=== PATIENT | female | born 1965 | race Caucasian/White ===

== ENCOUNTER → 2018-11-21 10:16 | Outpatient (CLI) | payer OTHER, SELFPAY ==
--- NOTE | 2018-11-21 10:00 | DI.MG.S_ITS ---
Patient Name: ARUN CLAY date: 1965 Sex: F Attending Physician: Malick Indications: Date: 11/21/2018 10:30 At the request of: JOSE G BURGOS Procedure: MM screening mammo BI BILATERAL DIGITAL SCREENING MAMMOGRAM 3D/2D WITH CAD: 11/21/2018 CLINICAL: Routine screening. Comparison is made to exams dated: 10/16/2015 mammogram, 03/19/2013 mammogram - [facility], and 07/12/2011 mammogram - [facility]. The tissue of both breasts is predominantly fatty. Current study was also evaluated with a Computer Aided Detection (CAD) system. There are benign calcifications in both breasts. No significant masses, calcifications, or other findings are seen in either breast. There has been no significant interval change. IMPRESSION: There is no mammographic evidence of malignancy. A 1 year screening mammogram is recommended. This exam was interpreted at Station ID: [id number]. NOTE: For mammograms, a report in lay terms will be sent to the patient. Approximately 15% of breast malignancies will not be visualized mammographically. In the management of a palpable breast mass, a negative mammogram must not discourage biopsy of a clinically suspicious lesion. Electronically Signed By: James pina/west:11/21/2018 14:01:33 letter sent: Normal Exam ACR BI-RADS Category 2: Benign Finding(s) 3342F
== END ==
PROVIDERS: PCP Nurse Practitioner Family; Visit Provider Nurse Practitioner Family
DX: Z12.31 Encounter for screening mammogram for malignant neoplasm of breast (principal)
CPT/HCPCS: 77063; 77067

== ENCOUNTER → 2018-11-24 08:45 | Outpatient (CLI) | payer OTHER, SELFPAY ==
--- NOTE | 2018-11-24 08:59 | DI.CT.S_ITS ---
PROCEDURE: CT SINUS SCREEN WO CON INDICATIONS: SINUSITIS TECHNIQUE: Noncontrast 3.0 mm axial images acquired from the frontal sinuses to the mid-sella, with coronal and sagittal reformats. For radiation dose reduction, the following was used: automated exposure control, adjustment of mA and/or kV according to patient size. COMPARISON: None. FINDINGS: Image quality: Excellent. Sinuses: There is minimal bilateral maxillary and frontal sinus mucosal thickening. present. Ostiomeatal Complexes: Ostiomeatal complexes are patent. There is slight narrowing on the left secondary to turbinate curvature. Miscellaneous: Visualized intra-orbital contents are normal. There is a minimal appearance of bilateral paradoxical middle turbinate. There is aeration of the vertical jonathan of the middle turbinates bilaterally. Mild rightward nasal septal deviation with prominent nasal osseous spur is noted along the inferior aspect. IMPRESSION: 1. Minimal maxillary and frontal sinus mucosal thickening patent osteomeatal complexes. Dictated by: Hortensia Vick M.D. on 11/24/2018 at 10:29 Approved by: Hortensia Vick M.D. on 11/24/2018 at 10:54
== END ==
PROVIDERS: PCP Nurse Practitioner Family; Visit Provider Otolaryngology
DX: J32.8 Other chronic sinusitis (principal); J34.2 Deviated nasal septum
CPT/HCPCS: 70486

== ENCOUNTER → 2019-07-14 11:39 | Outpatient (CLI) | payer OTHER, SELFPAY ==
[2019-07-14 12:18] LABS: Add Manual Diff / Slide Review NO; Basophils Absolute Auto 100 /uL (0-100); Basophils Percent Auto 0.7 % (0-2); Eosinophils Absolute Auto 100 /uL (0-450); Eosinophils Percent Auto 1.6 % (2-4); Hematocrit 40.6 % (36-46); Hemoglobin 13.8 g/dL (12.0-16.0); Lymphocytes Absolute Auto 2600 /uL (1100-4500); Mean Corpuscular Hemoglobin 31.6 PG (26-34); Mean Corpuscular Volume 92.9 fL (80-100); Monocytes Absolute Auto 600 /uL (0-900); Monocytes Percent Auto 7.2 % (3-14); Neutrophils Absolute Auto 5000 /uL (1500-7000); Neutrophils Percent Auto 59.5 % (50-75); Platelet Count 296 X10^3/uL (150-400); Red Blood Cell Count 4.37 X10^6/uL (4.0-5.2); White Blood Cell Count 8.5 X10^3/uL (4.5-11.0)
[2019-07-14 12:22] LABS: Monotest Negative (Negative)
[2019-07-14 12:50] LABS: HEMOLYSIS < 15 (0-50); Iron 106 ug/dL (37-170)
[2019-07-14 12:54] LABS: Alanine Aminotransferase 32 IU/L (9-52); Albumin 4.2 g/dL (3.5-5.0); Albumin Globulin Ratio 1.4 (1.0-2.8); Alkaline Phosphatase 77 U/L (38-126); Aspartate Aminotransferase 30 IU/L (14-36); Bilirubin Total 0.6 mg/dL (0.2-1.3); Blood Urea Nitrogen 16 mg/dL (7-17); Calcium 9.6 mg/dL (8.4-10.2); Carbon Dioxide 23 mmol/L (22-32); Chloride 105 mmol/L (98-107); Estimated Glomerular Filt Rate > 60.0 mL/min (>60); Globulin 2.9 g/dL (1.7-4.1); Glucose 110 mg/dL (70-100); HEMOLYSIS < 15 (0-50); Potassium 4.4 mmol/L (3.4-5.1); Sodium 138 mmol/L (137-145); Total Protein 7.1 g/dL (6.3-8.2)
[2019-07-14 13:04] LABS: Percent Iron Saturation 31 % (15-50); Total Iron Binding Capacity 343 ug/dL (265-497); Transferrin 289 mg/dL (206-381)
[2019-07-14 13:21] LABS: Thyroid Stimulating Hormone 1.85 uIU/mL (0.47-4.68)
== END ==
PROVIDERS: PCP Nurse Practitioner Family; Visit Provider Nurse Practitioner Family
DX: R53.83 Other fatigue (principal); R07.0 Pain in throat; R51 Headache
CPT/HCPCS: 36415; 80053; 83540; 83550; 84443; 85025; 86318

== ENCOUNTER → 2021-02-09 08:16 | Outpatient (CLI) | payer OTHER, SELFPAY ==
--- NOTE | 2021-02-09 | DI.MG.S_ITS ---
BILATERAL DIGITAL SCREENING MAMMOGRAM 3D/2D WITH CAD: 02/09/2021 CLINICAL: Routine screening. Comparison is made to exams dated: 11/21/2018 mammogram, 10/16/2015 mammogram, and 03/19/2013 mammogram - [facility]. There are scattered fibroglandular elements in both breasts. Current study was also evaluated with a Computer Aided Detection (CAD) system. There are benign calcifications in both breasts. No significant masses, calcifications, or other findings are seen in either breast. There has been no significant interval change. IMPRESSION: BENIGN There is no mammographic evidence of malignancy. A 1 year screening mammogram is recommended. This exam was interpreted at Station ID: [id number]. NOTE: For mammograms, a report in lay terms will be sent to the patient. Approximately 15% of breast malignancies will not be visualized mammographically. In the management of a palpable breast mass, a negative mammogram must not discourage biopsy of a clinically suspicious lesion. Electronically Signed By: Javan hopkins/west:02/09/2021 10:31:48 letter sent: Normal Exam ACR BI-RADS Category 2: Benign Finding(s) 3342F
== END ==
PROVIDERS: PCP Physician Assistant; Referring Provider Nurse Practitioner Family; Visit Provider Nurse Practitioner Family
DX: Z12.31 Encounter for screening mammogram for malignant neoplasm of breast (principal)
CPT/HCPCS: 77063; 77067

== ENCOUNTER → 2021-04-20 08:09 | Outpatient (CLI) | payer OTHER, SELFPAY ==
[2021-04-20 08:53] LABS: Add Manual Diff / Slide Review NO; Basophils Absolute Auto 0 /uL (0-100); Basophils Percent Auto 0.4 % (0-2); Eosinophils Absolute Auto 200 /uL (0-450); Eosinophils Percent Auto 2.4 % (2-4); Hematocrit 38.9 % (36-46); Lymphocytes Absolute Auto 2900 /uL (1100-4500); Lymphocytes Percent Auto 37.3 % (25-40); Mean Corpuscular HGB Conc 33.4 % (30-36); Mean Corpuscular Hemoglobin 31.1 PG (26-34); Mean Corpuscular Volume 92.9 fL (80-100); Monocytes Absolute Auto 600 /uL (0-900); Monocytes Percent Auto 7.4 % (3-14); Neutrophils Absolute Auto 4000 /uL (1500-7000); Neutrophils Percent Auto 52.5 % (50-75); Platelet Count 241 X10^3/uL (150-400); Red Blood Cell Count 4.18 X10^6/uL (4.0-5.2); Red Cell Distribution Width 13.9 % (11.6-14.8); White Blood Cell Count 7.6 X10^3/uL (4.5-11.0)
[2021-04-20 09:08] LABS: Alanine Aminotransferase 23 IU/L (<35); Albumin 4.1 g/dL (3.5-5.0); Albumin Globulin Ratio 1.3 (1.0-2.8); Alkaline Phosphatase 73 U/L (38-126); Aspartate Aminotransferase 28 IU/L (14-36); BUN Creatinine Ratio 37.7 (6-22); Bilirubin Total 0.4 mg/dL (0.2-1.3); Blood Urea Nitrogen 20 mg/dL (7-17); Calcium 9.7 mg/dL (8.4-10.2); Carbon Dioxide 25 mmol/L (22-32); Chloride 106 mmol/L (98-107); Estimated Glomerular Filt Rate > 60.0 mL/min (>60); Globulin 3.2 g/dL (1.7-4.1); Glucose 117 mg/dL (70-100); HEMOLYSIS < 15 (0-50); Potassium 4.4 mmol/L (3.4-5.1); Sodium 139 mmol/L (137-145); Total Protein 7.3 g/dL (6.3-8.2)
[2021-04-20 09:37] LABS: Progesterone, Total 0.38 ng/mL
[2021-04-20 09:50] LABS: TSH w/ Reflex to FT4 5.56 uIU/mL (0.47-4.68)
[2021-04-20 09:53] LABS: Estradiol, Total 35.1 pg/mL
[2021-04-20 09:54] LABS: Vitamin B12 344 pg/mL (239-931)
[2021-04-20 10:16] LABS: Free T4, Direct Thyroxine 0.81 ng/dL (0.78-2.19)
== END ==
PROVIDERS: PCP Physician Assistant; Referring Provider Physician Assistant; Visit Provider Physician Assistant
DX: R23.2 Flushing (principal); Z79.899 Other long term (current) drug therapy; D51.9 Vitamin B12 deficiency anemia, unspecified
CPT/HCPCS: 36415; 80053; 82607; 82670; 83001; 84144; 84439; 84443; 85025

== ENCOUNTER → 2021-06-01 09:44 | Outpatient (CLI) | payer OTHER, SELFPAY ==
[2021-06-01 10:49] LABS: TSH w/ Reflex to FT4 4.36 uIU/mL (0.47-4.68)
== END ==
PROVIDERS: PCP Physician Assistant; Referring Provider Physician Assistant; Visit Provider Physician Assistant
DX: E03.9 Hypothyroidism, unspecified (principal)
CPT/HCPCS: 36415; 84443

== ENCOUNTER 2021-10-23 07:09 | Emergency (ER) | payer OTHER, SELFPAY ==
[2021-10-23] MEDS: PROPARACAINE 0.5% OPHTH SOL 1 DROPS EYE-LEFT (07:23)
[2021-10-23] MEDS: FLUORESCEIN 1 MG STRIP EYE-BOTH (07:23)
--- NOTE | 2021-10-23 07:24 | ED_ITS ---
HPI - General Adult General Stated complaint: left eye injury at 3am Time Seen by Provider: 10/23/21 07:12 Source: patient Mode of arrival: Ambulatory Limitations: no limitations History of Present Illness HPI narrative: Patient is a 55-year-old female. Does wear corrective lenses. Has never had eye surgeries. Is here for evaluation of irritation in tenderness to her left eye. It occurred overnight. States that her dog accidentally stepped on her face. She thought it was just a ?poked in the eye ?as the night went on his the morning went on she has had extreme discomfort in the eye. Has not tried anyth ing for prior to arrival. Related Data Home Medications Medication Instructions Recorded Confirmed ibuprofen 200 mg tablet (Advil) 200 mg PO PRN #0 06/04/13 Previous Rx's Medication Instructions Recorded alprazolam 0.5 mg tablet (Xanax) 0.5 mg PO PO #30 tab 09/17/17 erythromycin 5 mg/gram (0.5 %) eye 0.5 inch EYE-LEFT QID 2 Days #3.5 g 10/23/21 ointment Review of Systems Eyes Comments: Blurry vision, pain in the left eye, ENT Ears, Nose, Mouth, and Throat: Reports system reviewed and no additional complaints, except as documented Integumentary/Breasts Skin/Breast: Reports system reviewed and no additional complaints, except as documented Hematologic/Lymphatic On Anticoagulants: No Patient History Medical History Anxiety Social History (Updated 10/23/21 @ 07:34 by Ambrosio Buenrostro DO) lives independently: Yes Exam Const General: cooperative and comfortable [facility] Head: normal to inspection and normocephalic Nose: external nose normal Face and sinus: normal facial exam Eyes Other: Periorbital findings left eye do show some irritation but no breaks in the skin. Fluorescein was used. She does have a rather large corneal abrasion going from approximately the 10 o'clock position to 2 o'clock position on the cornea superior aspect of the left eye. There is no signs of ulcerations. Pupils are equal round and reactive. Low suspicion for an open globe. No foreign bodies noted. Skin Other: Your today herrmann around the left eye Neuro General: patient alert, patient awake and moves all extremities Course Orders Ordered: Discontinued Medications Erythromycin (Erythromycin Ophth 1 Gm Oint) 1 applic EYE-LEFT NOW ONE Stop: 10/23/21 07:25 Fluorescein Sodium (Fluorescein 1 Mg Strip) 1 mg EYE-BOTH NOW ONE Stop: 10/23/21 07:13 Last Admin: 10/23/21 07:23 Dose: 1 mg Documented by: BRIDGETT Proparacaine HCl (Proparacaine 0.5% Ophth Serena) 1 drops EYE-LEFT NOW ONE Stop: 10/23/21 07:13 Last Admin: 10/23/21 07:23 Dose: 1 drops Documented by: BRIDGETT Medical Decision Making MDM Narrative Medical decision making narrative: Physical exam is consistent with a fairly large corneal abrasion on the left eye. No foreign body noted, low suspicion for an open globe. Low suspicion for ulceration. Will place the patient on antibiotic ointment. She is given return precautions. She expressed understanding and agreement. Discharge Plan Departure Patient Disposition: Home Clinical Impression: Corneal abrasion Activity Restrictions/Additional Instructions: You do have what is called a corneal abrasion tear left eye. These normally heal in a relatively short period of time. You can take Tylenol/ibuprofen for discomfort. We do need to put you on antibiotic ointment. It was electronically transmitted to [facility]. Use it as directed. Return to the emergency department for any new or worsening symptoms. Prescriptions: New erythromycin 5 mg/gram (0.5 %) ointment 0.5 inch EYE-LEFT QID 2 Days Qty: 3.5 0RF No Action ibuprofen [Advil] 200 MG tablet 200 mg PO PRN Qty: 0 0RF alprazolam [Xanax] 0.5 MG tablet 0.5 mg PO PO Qty: 30 0RF Referrals: Magui Duncan PA-C [Primary Care Provider] -
[2021-10-23 07:34] VITALS: BP 189/96; PULSE 90; RESP 18; O2SAT 95; BMI 44.4
[2021-10-23] MEDS: ERYTHROMYCIN OPHTH 1 GM OINT 1 APPLIC EYE-LEFT (07:41)
== END 2021-10-23 07:51 | disposition home or self-care (01) ==
PROVIDERS: Emergency Provider Emergency Medicine; PCP Physician Assistant
DX: S05.02XA Injury of conjunctiva and corneal abrasion without foreign body, left eye, initial encounter (principal); W54.8XXA Other contact with dog, initial encounter
CPT/HCPCS: 99282

== ENCOUNTER → 2022-03-08 07:56 | Outpatient (CLI) | payer OTHER, SELFPAY ==
[2022-03-08 09:16] LABS: Progesterone, Total 0.63 ng/mL
[2022-03-08 09:21] LABS: TSH w/ Reflex to FT4 4.44 uIU/mL (0.47-4.68)
[2022-03-08 09:32] LABS: Estradiol, Total 16.4 pg/mL
== END ==
PROVIDERS: PCP Physician Assistant; Referring Provider Physician Assistant; Visit Provider Physician Assistant
DX: E03.9 Hypothyroidism, unspecified (principal); R23.2 Flushing
CPT/HCPCS: 36415; 82670; 84144; 84443

== ENCOUNTER → 2022-03-27 10:39 | Outpatient (CLI) | payer OTHER, SELFPAY ==
--- NOTE | 2022-03-27 10:40 | DI.MG.S_ITS ---
BILATERAL DIGITAL SCREENING MAMMOGRAM 3D/2D WITH CAD: 03/27/2022 CLINICAL: Routine screening. Comparison is made to exams dated: 02/09/2021 mammogram, 10/16/2015 mammogram, and 03/19/2013 mammogram - [facility]. The tissue of both breasts is predominantly fatty. Current study was also evaluated with a Computer Aided Detection (CAD) system. There are benign calcifications in both breasts. No significant masses, calcifications, or other findings are seen in either breast. There has been no significant interval change. IMPRESSION: BENIGN There is no mammographic evidence of malignancy. A 1 year screening mammogram is recommended. This exam was interpreted at Station ID: [id number]. NOTE: For mammograms, a report in lay terms will be sent to the patient. Approximately 15% of breast malignancies will not be visualized mammographically. In the management of a palpable breast mass, a negative mammogram must not discourage biopsy of a clinically suspicious lesion. Electronically Signed By: Weston garcia/west:03/27/2022 12:18:02 letter sent: Normal Exam ACR BI-RADS Category 2: Benign Finding(s) 3342F
== END ==
PROVIDERS: PCP Physician Assistant; Referring Provider Physician Assistant; Visit Provider Physician Assistant
DX: Z12.31 Encounter for screening mammogram for malignant neoplasm of breast (principal)
CPT/HCPCS: 77063; 77067

== ENCOUNTER → 2022-05-08 12:11 | Outpatient (CLI) | payer OTHER, SELFPAY | PROVIDERS: PCP Physician Assistant; Visit Provider Physician Assistant | DX: N89.8 Other specified noninflammatory disorders of vagina (principal) | CPT/HCPCS: 87210 ==

== ENCOUNTER → 2022-08-07 10:36 | Outpatient (CLI) | payer OTHER, SELFPAY ==
[2022-08-07 13:29] LABS: Add Manual Diff / Slide Review NO; Basophils Absolute Auto 0 /uL (0-100); Basophils Percent Auto 0.4 % (0-2); Eosinophils Absolute Auto 100 /uL (0-450); Eosinophils Percent Auto 1.7 % (2-4); Hematocrit 37.2 % (36-46); Hemoglobin 12.7 g/dL (12.0-16.0); Lymphocytes Absolute Auto 2100 /uL (1100-4500); Lymphocytes Percent Auto 30.5 % (25-40); Mean Corpuscular HGB Conc 34.3 % (30-36); Mean Corpuscular Hemoglobin 31.5 PG (26-34); Mean Corpuscular Volume 91.9 fL (80-100); Monocytes Absolute Auto 500 /uL (0-900); Monocytes Percent Auto 7.1 % (3-14); Neutrophils Absolute Auto 4200 /uL (1500-7000); Neutrophils Percent Auto 60.3 % (50-75); Platelet Count 218 X10^3/uL (150-400); Red Blood Cell Count 4.04 X10^6/uL (4.0-5.2); Red Cell Distribution Width 14.4 % (11.6-14.8)
[2022-08-07 13:50] LABS: Alanine Aminotransferase 29 IU/L (<35); Albumin 3.9 g/dL (3.5-5.0); Albumin Globulin Ratio 1.3 (1.0-2.8); Alkaline Phosphatase 79 U/L (38-126); Aspartate Aminotransferase 31 IU/L (14-36); BUN Creatinine Ratio 24.6 (6-22); Bilirubin Total 0.4 mg/dL (0.2-1.3); Blood Urea Nitrogen 14 mg/dL (7-17); Calcium 8.7 mg/dL (8.4-10.2); Carbon Dioxide 24 mmol/L (22-32); Chloride 104 mmol/L (98-107); Cholesterol 222 mg/dL (140-199); Estimated Glomerular Filt Rate > 60 mL/min (>60); Glucose 99 mg/dL (70-100); HDL Cholesterol 52 mg/dL (40-60); HEMOLYSIS < 15 (0-50); LDL Cholesterol Calculated 147 mg/dL (<100); Potassium 4.2 mmol/L (3.4-5.1); Sodium 138 mmol/L (137-145); Total Protein 6.9 g/dL (6.3-8.2); Triglycerides 116 mg/dL (35-150)
[2022-08-07 14:00] LABS: Erythrocyte Sedimentation Rate 21 MM/HR (0-20)
[2022-08-07 14:12] LABS: TSH w/ Reflex to FT4 3.17 uIU/mL (0.47-4.68)
[2022-08-07 14:54] LABS: Folate > 20.0 ng/mL (2.76-20.0); Vitamin B12 452 pg/mL (239-931)
[2022-08-07 17:25] LABS: Vitamin D 25 Hydroxy (D3) 51.8 ng/mL (30.0-100.0)
[2022-08-07 17:26] LABS: Follicle Stimulating Hormone 16.2 mIU/mL; Luteinizing Hormone 10.2 mIU/mL; Progesterone, Total 1.02 ng/mL
[2022-08-07 17:41] LABS: Estradiol, Total 57.4 pg/mL
[2022-08-08 07:09] LABS: Dehydroepiandrosterone Sulfate 43.9 ug/dL (29.4-220.5)
[2022-08-09 18:50] LABS: ANA Screen, IFA Negative (.)
[2022-08-12 06:08] LABS: Testosterone % Fr + Wkly bound 7.7 % (3.0-18.0); Testosterone Fr+Wkly bound 1.1 ng/dL (0.0-9.5); Testosterone, Total 14.1 ng/dL (.)
== END ==
PROVIDERS: PCP Family Medicine; Referring Provider Family Medicine; Visit Provider Family Medicine
DX: R53.83 Other fatigue (principal); H04.129 Dry eye syndrome of unspecified lacrimal gland; N89.8 Other specified noninflammatory disorders of vagina; N95.1 Menopausal and female climacteric states; E53.8 Deficiency of other specified B group vitamins; E66.01 Morbid (severe) obesity due to excess calories
CPT/HCPCS: 36415; 80053; 80061; 82306; 82607; 82627; 82670; 82746; 83001; 83002; 84144; 84403; 84443; 85025; 85651; 86038

== ENCOUNTER → 2023-01-01 10:36 | Outpatient (CLI) | payer OTHER, SELFPAY ==
[2023-01-01 11:12] LABS: Add Manual Diff / Slide Review NO; Basophils Absolute Auto 100 /uL (0-100); Basophils Percent Auto 0.7 % (0-2); Eosinophils Absolute Auto 200 /uL (0-450); Eosinophils Percent Auto 2.6 % (2-4); Hematocrit 39.4 % (36-46); Hemoglobin 12.9 g/dL (12.0-16.0); Lymphocytes Absolute Auto 2200 /uL (1100-4500); Lymphocytes Percent Auto 29.7 % (25-40); Mean Corpuscular HGB Conc 32.8 % (30-36); Mean Corpuscular Hemoglobin 30.3 PG (26-34); Mean Corpuscular Volume 92.4 fL (80-100); Monocytes Absolute Auto 600 /uL (0-900); Monocytes Percent Auto 7.5 % (3-14); Neutrophils Absolute Auto 4400 /uL (1500-7000); Neutrophils Percent Auto 59.5 % (50-75); Platelet Count 226 X10^3/uL (150-400); Red Blood Cell Count 4.26 X10^6/uL (4.0-5.2); Red Cell Distribution Width 14.4 % (11.6-14.8); White Blood Cell Count 7.4 X10^3/uL (4.5-11.0)
[2023-01-01 11:42] LABS: Alanine Aminotransferase 28 IU/L (<35); Albumin 4.1 g/dL (3.5-5.0); Albumin Globulin Ratio 1.2 (1.0-2.8); Alkaline Phosphatase 84 U/L (38-126); Aspartate Aminotransferase 28 IU/L (14-36); BUN Creatinine Ratio 29.3 (6-22); Bilirubin Total 0.5 mg/dL (0.2-1.3); Blood Urea Nitrogen 17 mg/dL (7-17); Carbon Dioxide 26 mmol/L (22-32); Chloride 104 mmol/L (98-107); Cholesterol 237 mg/dL (140-199); Estimated Glomerular Filt Rate > 60 mL/min (>60); Globulin 3.3 g/dL (1.7-4.1); Glucose 117 mg/dL (70-100); HDL Cholesterol 52 mg/dL (40-60); HEMOLYSIS < 15 (0-50); LDL Cholesterol Calculated 159 mg/dL (<100); Potassium 3.9 mmol/L (3.4-5.1); Sodium 138 mmol/L (137-145); Total Protein 7.4 g/dL (6.3-8.2); Triglycerides 129 mg/dL (35-150)
[2023-01-01 12:11] LABS: TSH w/ Reflex to FT4 4.23 uIU/mL (0.47-4.68)
[2023-01-01 12:52] LABS: Folate 15.5 ng/mL (2.76-20.0); Vitamin B12 624 pg/mL (239-931)
== END ==
PROVIDERS: PCP Family Medicine; Referring Provider Family Medicine; Visit Provider Family Medicine
DX: E78.2 Mixed hyperlipidemia (principal); N95.0 Postmenopausal bleeding; E53.8 Deficiency of other specified B group vitamins; E03.9 Hypothyroidism, unspecified
CPT/HCPCS: 36415; 80053; 80061; 82607; 82746; 84443; 85025